=== PATIENT | male | born 1995 | race American Indian/Alaskan Native ===

== ENCOUNTER 2017-09-11 02:19 | Emergency (ER) | payer SELFPAY ==
[2017-09-11 02:34] VITALS: BP 133/73; PULSE 67; RESP 20; TEMP 98; O2SAT 97
[2017-09-11] MEDS ORDERED: Oxycodone/Acetaminophen 5/325 mg Tab PO STA (02:41)
--- NOTE | 2017-09-11 02:42 | C.PDOC ---
History Of Present Illness 22 year old male presents to the ER with a complaint of a tooth ache that began at approximately 15:00. Patient was taking ibuprofen and aspirin with no relief to symptoms. Denies tooth discharge or bleeding gums. Chief Complaint (Nursing): Dental Pain History Per: Patient History/Exam Limitations: no limitations Onset/Duration Of Symptoms: Hrs Current Symptoms Are (Timing): Still Present Quality: Positive for: Aching Recent travel outside of the [place]: No Past Medical History Reviewed: Historical Data, Nursing Documentation, Vital Signs Vital Signs: Last Vital Signs Temp 98 F 09/11/17 02:24 Pulse 67 09/11/17 02:24 Resp 20 09/11/17 02:24 BP 133/73 09/11/17 02:24 Pulse Ox 97 09/11/17 02:42 - Medical History PMH: No Chronic Diseases Surgical History: No Surg Hx Family History: States: Unknown Family Hx - Social History Hx Alcohol Use: No Hx Substance Use: Yes Review Of Systems Constitutional: Negative for: Fever, Chills ENT: Positive for: Mouth Pain. Negative for: Mouth Swelling Physical Exam - Physical Exam Appears: Non-toxic, No Acute Distress Skin: Normal Color, Warm, Dry Head: Atraumatic, Normacephalic, No Swelling (Facial) Eye(s): bilateral: Normal Inspection, EOMI Oral Mucosa: Moist Tongue: Normal Appearing Lips: Normal Appearing Teeth: Caries (To 2nd left upper molar) Gingiva: Normal Appearing, No Swelling, No Bleeding Throat: Normal, No Erythema, No Other (Swelling) Neck: Normal, Supple ED Course And Treatment O2 Sat by Pulse Oximetry: 97 (room air) Pulse Ox Interpretation: Normal Progress Note: Pen-vee-k and percocet administered. Patient discharged home with Rx and instructed to follow up with dentist in 1-2 days for further management. Disposition - Disposition Disposition: HOME/ ROUTINE Disposition Time: 02:41 Condition: STABLE Additional Instructions: Follow up with your Dentist within 1-2 days. Return to ED if feel worse. Prescriptions: Penicillin VK [Penicillin VK Tab] 500 mg PO Q6H #28 tab oxyCODONE/Acetaminophen [Percocet 5/325 mg Tab] 1 tab PO QID PRN #20 tab PRN Reason: Pain Instructions: Dental Caries (ED), Toothache (ED) Forms: [employer] (Cam[place]onian) - Clinical Impression Clinical Impression: Dental caries - Scribe Statement The provider has reviewed the documentation as recorded by the Scribe Javier Márquez All medical record entries made by the Joseibe were at my direction and personally dictated by me. I have reviewed the chart and agree that the record accurately reflects my personal performance of the history, physical exam, medical decision making, and the department course for this patient. I have also personally directed, reviewed, and agree with the discharge instructions and disposition.
[2017-09-11] MEDS ORDERED: Oxycodone/Acetaminophen 5/325 mg Tab ONE (02:49)
== END 2017-09-11 02:57 | disposition home or self-care (01) ==
LOC: C.ER 02:19
DX: K02.9 Dental caries, unspecified (principal)